=== PATIENT | female | born 1960 | race Caucasian/White ===

== ENCOUNTER 2024-05-13 01:14 | Day surgery (SDC) | payer MEDICARE, OTHER, SELFPAY ==
[2024-05-01 10:04] VITALS: BMI 35.2
[2024-05-13 06:46] VITALS: BP 143/67; PULSE 55; RESP 18; TEMP 36.8; O2SAT 100
[2024-05-13 06:48] VITALS: BMI 35.7
[2024-05-13] MEDS: LACTATED RINGERS 1,000 ML 150 ML IV CONT (07:03)
--- NOTE | 2024-05-13 07:49 | P.HP_ITS ---
H&P: HPI History of Present Illness Date/Time: 05/13/24 07:49 Chief Complaint: History of colon polyps Narrative: The patient has a history of colonic polyps, the last colonoscopy was 7 years ago. Review of Systems Review of Systems: All systems reviewed & are unremarkable except as noted in HPI and below [facility] Social History Social History Smoking status: Never smoker Alcohol intake: current Alcohol use details: Socially Substance use type: does not use Living arrangements: alone Meds Home Medications and Allergies Home Medications Medication Instructions Recorded Confirmed Type omeprazole 20 mg capsule,delayed 20 mg PO DAILY 05/01/24 05/13/24 History release Allergies Allergy/AdvReac Type Severity Reaction Status Date / Time Opioids - Morphine Analogues AdvReac Vomiting Verified 05/01/24 10:01 Vital Signs Vital Signs - 24 hr 05/13/24 06:46 Temperature 98.2 F Pulse Rate 55 L Respiratory Rate 18 Blood Pressure 143/67 H Pulse Oximetry 100 Oxygen Delivery Room Air Exam Const: General: cooperative and healthy appearing Resp: Effort & Inspection: normal respiratory effort and able to speak in complete sentences Auscultation: clear to auscultation bilaterally Cardio: Rate: regular rate Rhythm: regular rhythm GI: Inspection: normal to inspection GI Palp: No No hepatosplenomegaly present Auscultation: normal bowel sounds Rectal Exam: deferred Skin: General skin exam: normal color Psych: Appearance: grossly normal Mental Status: mental status grossly normal Assessment and Plan Assessment and plan (1) History of colonic polyps: Code(s): Z86.0100 - Personal history of colon polyps, unspecified Status: Acute Assessment and Plan: The patient is deemed a good candidate for the procedure. Consent signed. Will proceed.
--- NOTE | 2024-05-13 07:55 | P.PNAN_ITS ---
Anes - Initial Pre Proc Eval Procedure: Operation Date: 05/13/24 08:00 Proposed Procedures p Colonoscopy - Abad Membreno MD Date/Time: 05/13/24 07:55 Surgeon: Abad Membreno MD Pre Op Diagnosis: fecal abnormalities Patient Data Age: 63 Gender: F Height: 1.57 m Weight: 88.7 kg Last Vital Signs Temp 36.8 C 05/13/24 06:46 Pulse 55 L 05/13/24 06:46 Resp 18 05/13/24 06:46 BP 143/67 H 05/13/24 06:46 Pulse Ox 100 05/13/24 06:46 O2 Del Method Room Air 05/13/24 06:46 Allergies Allergy/AdvReac Type Severity Reaction Status Date / Time Opioids - Morphine Analogues AdvReac Vomiting Verified 05/01/24 10:01 Home Medications Medication Instructions Recorded Confirmed Type omeprazole 20 mg capsule,delayed 20 mg PO DAILY 05/01/24 05/13/24 History release Patient hx anesthesia problems: none Family hx anesthesia problems: none Results Review: All pre-operative results and documents have been reviewed as part of the pre- operative evaluation. [facility] Social History Social History Smoking status: Never smoker Alcohol intake: current Alcohol use details: Socially Substance use type: does not use Living arrangements: alone Anes - Eval Final PreProcedure Day of Procedure 05/13/24 07:55 Patient weight: obese Heart: regular rate and rhythm Lungs: clear to auscultation Airway: Mallampati scale class III Neurological: alert and oriented Last oral intake: >/= 8 hours ASA classification: III Emergent: no Anesthetic plan: proceed Anesthesia type and monitoring: general GIVS and standard monitoring Results Review: All pre-operative results and documents have been reviewed as part of the pre- operative evaluation. Informed Consent: The patient's anesthetic plan and its attendant risks and benefits were discussed with the patient/family/POA. Questions were solicited and answers provided to the satisfaction of the patient/family/POA.
[2024-05-13] MEDS: SIMETHICONE ORAL SUSPENSION 20 MG/0.3 ML 30 ML BOTTLE 0.6 ML IRRIGATION (08:08)
[2024-05-13 08:19] VITALS: BP 110/52; PULSE 69; RESP 11; O2SAT 100
[2024-05-13 08:29] VITALS: BP 117/71; PULSE 69; RESP 20; O2SAT 100
[2024-05-13 08:39] VITALS: BP 121/63; PULSE 61; RESP 15; O2SAT 100
== END 2024-05-13 08:45 | disposition home or self-care (01) ==
PROVIDERS: PCP Internal Medicine; Referring Provider Internal Medicine; Visit Provider Internal Medicine Gastroenterology
PROC: 0DJD8ZZ Inspection of Lower Intestinal Tract, Via Natural or Artificial Opening Endoscopic (ICD-10-PCS; CPT 45378; principal; 2024-05-13 08:00)
DX: Z12.11 Encounter for screening for malignant neoplasm of colon (principal); K57.30 Diverticulosis of large intestine without perforation or abscess without bleeding; Z86.0100 Personal history of colon polyps, unspecified; E66.9 Obesity, unspecified; Z68.35 Body mass index [BMI] 35.0-35.9, adult
CPT/HCPCS: G0105; J2003; J2405; J2704; J7120